=== PATIENT | female | born 1970 | race American Indian/Alaskan Native ===

== ENCOUNTER 2021-11-23 20:57 | Emergency (ER) | payer MEDICARE ==
[2021-11-24] MEDS ORDERED: dexAMETHasone 20 MG/5 ML VIAL IM ONE (03:49)
[2021-11-24] MEDS ORDERED: ONDANSETRON 4 MG ODT TAB PO ONE (03:49)
[2021-11-24] MEDS ORDERED: KETOROLAC 30 MG/1 ML INJ IM ONE (03:49)
[2021-11-24] MEDS ORDERED: oxyCODONE /ACETAMINOPHEN 5-325MG TAB PO ONE (03:49)
--- NOTE | 2021-11-24 03:56 | Emergency Department Report ---
ED Back Pain/Injury HPI - General Chief Complaint: Back Pain/Injury Stated Complaint: BACK PAIN Source: patient Limitations: No Limitations, Other - History of Present Illness Initial Comments: Patient is a 51-year-old -[place] female with a history of chronic low back pain and deafness presents to the ED with complaint of acute exacerbation of her chronic low back pain characterized by low back pain that radiates to the lower extremities bilaterally for the last 2 days. Patient states that the pain has been constant and persistent and is worse with movement or physical activity. Patient denies dysuria, urinary frequency and urgency, chest pain, shortness of breath, traumatic injury, heavy lifting, fall, nausea and vomiting, hematuria, vaginal bleeding, abdominal pain, numbness and tingling or weakness of lower extremities bilaterally. MD Complaint: back pain, other (Low back pain that radiates to the lower extremities bilaterally) -: Gradual, days(s) (2), year(s) (2) Similar Symptoms Previously: Yes (Chronic low back pain with sciatica) Place: home Radiation: buttocks, left leg, right leg Severity: severe Severity scale (0 -10): 8 Quality: sharp, aching Consistency: constant Improves With: none Worsens With: movement, walking Context: unknown Associated Symptoms: denies other symptoms. denies: confusion, weakness, chest pain, numbness, difficulty walking, cough, difficulty urinating, diaphoresis, incontinence, constipation, headaches, abdominal pain, malaise, nausea/vomiting, rash, seizure, shortness of breath, syncope, other - Related Data Previous Rx's Medication Instructions Recorded Last Taken Type Ibuprofen [Motrin] 800 mg PO Q8HR PRN #30 tablet 11/24/21 Unknown Rx methOCARBAMOL [Robaxin TAB] 750 mg PO Q8H PRN #30 tab 11/24/21 Unknown Rx predniSONE [Deltasone] 60 mg PO QDAY #15 tab 11/24/21 Unknown Rx traMADoL [Ultram] 50 mg PO Q6HR PRN #12 tablet 11/24/21 Unknown Rx Allergies Allergy/AdvReac Type Severity Reaction Status Date / Time No Known Allergies Allergy Unverified 11/24/21 03:19 ED Review of Systems ROS: Stated complaint: BACK PAIN Other details as noted in HPI Constitutional: denies: chills, fever Eyes: denies: eye pain, eye discharge, vision change ENT: denies: ear pain, throat pain Respiratory: denies: cough, shortness of breath, wheezing Cardiovascular: denies: chest pain, palpitations Endocrine: no symptoms reported Gastrointestinal: denies: abdominal pain, nausea, diarrhea Genitourinary: denies: urgency, dysuria, discharge Musculoskeletal: back pain (Low back pain that radiates to the lower extremities bilaterally), arthralgia (Bilateral lower extremity radiating pain), myalgia. denies: joint swelling Skin: denies: rash, lesions Neurological: denies: headache, weakness, paresthesias Psychiatric: denies: anxiety, depression Hematological/Lymphatic: denies: easy bleeding, easy bruising ED Past Medical Hx - Past Medical History Previous Medical History?: Yes Additional medical history: Chronic low back pain with sciatica - Social History Smoking Status: Never Smoker Substance Use Type: None - Medications Home Medications: Home Medications Medication Instructions Recorded Confirmed Last Taken Type Ibuprofen [Motrin] 800 mg PO Q8HR PRN #30 tablet 11/24/21 Unknown Rx methOCARBAMOL [Robaxin TAB] 750 mg PO Q8H PRN #30 tab 11/24/21 Unknown Rx predniSONE [Deltasone] 60 mg PO QDAY #15 tab 11/24/21 Unknown Rx traMADoL [Ultram] 50 mg PO Q6HR PRN #12 tablet 11/24/21 Unknown Rx ED Physical Exam - General Limitations: No Limitations, Other General appearance: alert, in no apparent distress - Head Head exam: Present: atraumatic, normocephalic, normal inspection - Eye Eye exam: Present: normal appearance, PERRL, EOMI Pupils: Present: normal accommodation - ENT ENT exam: Present: normal exam, normal orophraynx, mucous membranes moist, TM's normal bilaterally, normal external ear exam - Neck Neck exam: Present: normal inspection, full ROM. Absent: tenderness - Respiratory Respiratory exam: Present: normal lung sounds bilaterally. Absent: respiratory distress, wheezes, rales, rhonchi, chest wall tenderness, accessory muscle use, decreased breath sounds, prolonged expiratory - Cardiovascular Cardiovascular Exam: Present: regular rate, normal rhythm, normal heart sounds. Absent: systolic murmur, diastolic murmur, rubs, gallop - GI/Abdominal GI/Abdominal exam: Present: soft, normal bowel sounds. Absent: tenderness, gua rding, rebound, hyperactive bowel sounds, hypoactive bowel sounds, organomegaly, mass - Extremities Exam Extremities exam: Present: normal inspection, full ROM, normal capillary refill - Back Exam Back exam: Present: normal inspection, full ROM. Absent: tenderness, CVA tenderness (R), CVA tenderness (L), muscle spasm, paraspinal tenderness, vertebral tenderness - Neurological Exam Neurological exam: Present: alert, oriented X3, CN II-XII intact, normal gait, reflexes normal - Psychiatric Psychiatric exam: Present: normal affect, normal mood - Skin Skin exam: Present: warm, dry, intact, normal color. Absent: rash ED Course Vital Signs 11/23/21 21:48 Temperature 98.3 F Pulse Rate 72 Respiratory 18 Rate Blood Pressure 138/94 O2 Sat by Pulse 96 Oximetry ED Medical Decision Making - Medical Decision Making This is a 51-year-old -[place] female with a history of chronic low back pain and deafness presents to the ED with complaint of acute exacerbation of her chronic low back pain characterized by low back pain that radiates to the lower extremities bilaterally for the last 2 days. Patient states that the pain has been constant and persistent and is worse with movement or physical activity. The history was obtained from the patient through transcriptions on paper. In the ED, patient is alert and oriented x3 and is not in any distress. Patient is hemodynamically stable. All treatment plans were discussed with the patient's as well as discharge plans. Patient was treated for pain in the ED. On reevaluation, patient's pain is well controlled medication. Patient will discharge home on medications for pain and advised to follow-up with her primary care physician in 7 to 10 days for reevaluation. - Differential Diagnosis Muscle spasm; muscle strain; sciatica; chronic pain; chronic back pain Critical care attestation.: If time is entered above; I have spent that time in minutes in the direct care of this critically ill patient, excluding procedure time. ED Disposition Clinical Impression: Spasm of muscle of lower back Chronic low back pain with bilateral sciatica Qualifiers: Back pain laterality: bilateral Qualified Code(s): M54.42 - Lumbago with sciatica, left side; M54.41 - Lumbago with sciatica, right side; G89.29 - Other chronic pain Disposition: 01 HOME / SELF CARE / HOMELESS Is pt being admited?: No Does the pt Need Aspirin: No Condition: Stable Instructions: Muscle Cramps and Spasms, [id number], Sciatica, [id number], Chronic Back Pain, [id number] Additional Instructions: Take medication with food, drink plenty of fluids and follow-up with your primary care physician in 7 to 10 days for reevaluation. Return to the ED immediately if symptoms get worse. Prescriptions: predniSONE [Deltasone] 60 mg PO QDAY #15 tab Ibuprofen [Motrin] 800 mg PO Q8HR PRN #30 tablet PRN Reason: Pain , Severe (7-10) methOCARBAMOL [Robaxin TAB] 750 mg PO Q8H PRN #30 tab PRN Reason: Muscle Spasm traMADoL [Ultram] 50 mg PO Q6HR PRN #12 tablet PRN Reason: Pain Referrals: MARY JO VAZQUEZ MD [Primary Care Provider] - 3-5 Days Time of Disposition: 03:55 Print Language: BELARUSIAN
[2021-11-24 04:44] VITALS: BP 142/89
== END 2021-11-24 04:45 | disposition home or self-care (01) ==
LOC: ED 20:57
DX: M54.32 Sciatica, left side (principal); M54.31 Sciatica, right side; M62.830 Muscle spasm of back; Z79.899 Other long term (current) drug therapy
CPT/HCPCS: 96372; 99282; J1100; J1885; J3490; Q0162